=== PATIENT | female | born 1990 | race African-American/Black ===

== ENCOUNTER 2016-09-25 07:45 | Emergency (ER) ==
[2016-09-25 08:03] VITALS: BP 113/63
--- NOTE | 2016-09-25 08:51 | PROVIDER DOCUMENTATION ---
HPI-General Adult - General Chief Complaint: Sore Throat Stated Complaint: My throat hurst and my whole body aches Time Seen by Provider: 09/25/16 08:14 Source: patient Allergies/Adverse Reactions: Patient Allergies Allergy/AdvReac Type Severity Reaction Status Date / Time No Known Allergies Allergy Verified 09/25/16 08:12 Home Medications: Home Medication List Medication Instructions Recorded Confirmed Last Taken Type Amoxicillin 500 mg PO BID #20 tablet 09/25/16 Unknown Rx Naproxen [Naprosyn] 250 mg PO BID #20 tablet 09/25/16 Unknown Rx - History of Present Illness -Gen Adult Nature of Presenting Problems: Says that she has had a sore throat for the past 2 days and body aches. Has had a subjective fever and has not had any difficulty swallowing and has been tolerating oral secretions w/o difficulty. has not had any known sick contacts. has not had any pain when moving neck. Review of Systems - Adult - REVIEW OF SYSTEMS - ADULT Constitutional: reports: fever (subjective) Eyes: reports: no symptoms reported Ears, Nose, Mouth & Throat: reports: throat pain Cardiovascular: reports: no symptoms reported Respiratory: reports: no symptoms reported Gastrointestinal: reports: no symptoms reported Genitourinary: reports: no symptoms reported Musculoskeletal: reports: other (body aches). denies: neck pain Integumentary: reports: no symptoms reported Neurological: reports: no symptoms reported Past History - Adult - PAST MEDICAL HISTORY-ADULT Review of Records: reports: Nursing Assessment Review Major Childhood Illnesses: reports: denies history Cardiovascular: reports: denies history Respiratory: reports: denies history Gastrointestinal: reports: denies history Obstetrical/Gynecological: reports: denies history Genitourinary: reports: denies history Musculoskeletal: reports: denies history Neurological: reports: denies history Psychiatric: reports: denies history Endocrine/Immune: reports: denies history Other Conditions: reports: denies history - PRIOR SURGERIES/PROCEDURES Surgical/Procedure History: reports: none - IMMUNIZATION STATUS Childhood Immunizations: See Nurse Assessment Flu Vaccine: See Nurse Assessment - FAMILY HISTORY Family History: reviewed, not pertinent Physical Exam-General - PHYSICAL EXAM-ADULT Initial Vital Signs Reviewed: Yes - CONSTITUTIONAL General Appearance: no apparent distress - EYES Eyes: PERRL/EOMI - HEAD, EARS, NOSE, MOUTH & THROAT HENMT: pharyngeal erythema, tonsillar exudate - NECK Neck: full range of motion, supple. negative: meningismus, trachial deviation - RESPIRATORY Respiratory: chest non-tender - CARDIOVASCULAR Cardiovascular: normal peripheral pulses - CHEST (BREASTS) Chest/Breast: deferred - GASTROINTESTINAL (ABDOMEN) Abdominal Exam: normal bowel sounds, non tender, soft (no RLQ or LLQ pain) - GENITOURINARY Female Genitalia/Pelvic Exam: deferred Rectal Exam: deferred - MUSCULOSKELETAL Back Exam: normal inspection. negative: muscle spasm Extremity: normal gait, no pedal edema. negative: calf tenderness, deformity, swelling Progress - PLAN OF CARE/RESULTS Progress/Plan/Lab Results: Orders Category Date Time Status DIRECT STREP Stat Lab 09/25/16 08:02 Completed INFLUENZA SCREEN A/B Stat Lab 09/25/16 08:02 Received Vital Signs - 24 hr 09/25/16 07:56 Temperature 99.3 F Pulse Rate 91 H Respiratory 20 Rate Blood Pressure 113/63 O2 Sat by Pulse 98 Oximetry sTREP pOSITIVE fLU-nEGATIVE Departure - Departure Time of Disposition Order: 09:19 DIAGNOSIS: Strep pharyngitis, Viral syndrome Disposition: HOME 01 Certified Medical Emergency: Emergent Condition: Stable Additional Instructions: ED Follow Up Instructions: You have been treated by a care provider in the Emergency Department. These instructions are being provided to you so you can have an understanding of how to care for yourself upon discharge. Upon discharge from the Emergency Department, you are responsible for making arrangements for follow-up care by a physician of your choice. Take all prescribed medications as directed. Return to the Emergency Department immediately for any new or worsening symptoms. You may call the Physician Referral phone number at [phone] to obtain a list of Physicians who are taking new patients. Prescriptions: Amoxicillin 500 mg PO BID #20 tablet Naproxen [Naprosyn] 250 mg PO BID #20 tablet Referrals: None,PCP [Primary Care Provider] -
== END 2016-09-25 10:50 | disposition home or self-care (01) ==
LOC: ED 07:45
DX: J02.0 Streptococcal pharyngitis (principal); B34.9 Viral infection, unspecified; R50.9 Fever, unspecified; R52 Pain, unspecified
CPT/HCPCS: 87430; 87804; 99283